=== PATIENT | female | born 2000 | race Caucasian/White ===

== ENCOUNTER 2023-11-29 08:23 | Outpatient (CLI) | payer BC, SELFPAY ==
[2023-11-29 10:36] LABS: Vitamin D 25 Hydroxy* 45 ng/mL (30-80)
[2023-11-30 17:58] LABS: Estradiol Premenol Female 97 pg/mL
[2023-12-02 05:07] LABS: Progesterone, HPLC-MS/MS 8.65 ng/mL
== END 2023-11-29 08:24 | disposition home or self-care (01) ==
PROVIDERS: Visit Provider Physician Assistant
DX: N94.6 Dysmenorrhea, unspecified (principal); R53.83 Other fatigue
CPT/HCPCS: 36415; 82306; 82670; 84144

== ENCOUNTER → 2025-01-08 10:50 | Outpatient (RCR) | payer BC, SELFPAY ==
[2023-12-02 09:07] LABS: Free T4 Free Thyroxine* 1.06 ng/dL (0.70-1.85)
[2023-12-02 21:25] LABS: Estradiol Premenol Female 165 pg/mL
[2023-12-03 06:56] LABS: Thyroid Peroxidase (TPO) Ab 0.3 IU/mL (0.0-9.0)
[2023-12-03 08:47] LABS: Estradiol Premenol Female 185 pg/mL
[2023-12-03 12:20] LABS: Prolactin 23.2 ng/mL (2.8-29.2)
[2023-12-03 16:16] LABS: DHEAS 153 ug/dL (148-407)
[2023-12-03 17:13] LABS: Free T3 3.1 pg/mL (2.5-4.3); Total T3 99 ng/dL (80-200)
[2023-12-04 02:44] LABS: Follicle Stimulating Hormone 3.2 IU/L; Luteinizing Hormone, Serum 9.6 IU/L
[2023-12-04 11:20] LABS: 17-OHpregnenolone Baseline 187 ng/dL (<=226)
[2023-12-05 05:33] LABS: Androstenedione by TMS 0.663 ng/mL (0.260-2.140)
[2023-12-05 05:38] LABS: Sex Hormone Binding Globulin 88 nmol/L (25-122); Testosterone, Free LC-MS/MS 1.4 pg/mL (0.8-7.4); Testosterone, LC-MS/MS 16 ng/dL (9-55)
[2023-12-05 08:41] LABS: Progesterone, HPLC-MS/MS 10.89 ng/mL
[2023-12-05 12:40] LABS: T3 Reverse - LC-MS/MS 11.5 ng/dL (9.0-27.0); T3, Ratio (T3:RT3) 8.5 (4.2-11.0); T3, Total - LC-MS/MS 98 ng/dL (80-200)
[2023-12-06 13:06] LABS: Estradiol Premenol Female 263 pg/mL
[2023-12-08 04:35] LABS: Progesterone, HPLC-MS/MS 14.04 ng/mL
[2023-12-08 21:19] LABS: Estradiol Premenol Female 309 pg/mL
[2023-12-10 09:30] LABS: Progesterone, HPLC-MS/MS 11.44 ng/mL
== END | disposition home or self-care (01) ==
LOC: LAB 12-01 08:17
PROVIDERS: Visit Provider Physician Assistant
DX: N94.6 Dysmenorrhea, unspecified (principal); R53.83 Other fatigue; Z13.29 Encounter for screening for other suspected endocrine disorder; Z13.21 Encounter for screening for nutritional disorder
CPT/HCPCS: 36415; 82157; 82627; 82670; 83001; 83002; 84143; 84144; 84146; 84270; 84402; 84403; 84439; 84443; 84480; 84481; 84482; 86376